=== PATIENT | female | born 1995 | race Caucasian/White ===

== ENCOUNTER 2019-01-10 17:40 | Outpatient (CLI) | payer BC ==
--- NOTE | 2019-01-11 00:21 | Ultrasound Report ---
Reason: PELVIC PAIN, RIGHT, POLYCYCSTIC OVARIAN SYNDROME Procedure Date: 01/10/2019 Accession Number: [id number] / [id number] Procedure: US - Pelvic w/Transvaginal CPT Code: FULL RESULT: EXAM: PELVIC ULTRASOUND EXAM DATE: 01/10/2019 06:35 PM. CLINICAL HISTORY: PELVIC PAIN, RIGHT, POLYCYCSTIC OVARIAN SYNDROME. COMPARISON: None. TECHNIQUE: Realtime transabdominal pelvic scan performed to identify the uterus and adnexa and as an overview of other pelvic structures, followed by transvaginal scan to provide greater detail of the uterus and adnexa, with static image documentation. FINDINGS: Uterus: 6.8 x 4.2 x 5.6 cm, volume 84.5 cc. Anteverted position. Normal overall size and echotexture. Masses: None. Endometrium: 6 mm. No focal endometrial abnormalities. Cervix: Unremarkable. Right Ovary: 3.8 x 2.4 x 3.4 cm, volume 16 cc. Normal echotexture and blood flow. Numerous follicles. Left Ovary: 3.5 x 1.6 x 3.2 cm, volume 9 cc. Normal echotexture and blood flow. Multiple peripheral follicles Free Fluid: None. Other: None. IMPRESSION: No acute sonographic abnormalities. Polycystic ovarian morphology, consistent with known PCOS. RADIA
== END 2019-01-10 17:41 | disposition home or self-care (01) ==
LOC: DI 17:40
PROVIDERS: ATTEND Nurse Practitioner Obstetrics & Gynecology
DX: E28.2 Polycystic ovarian syndrome (principal); R10.2 Pelvic and perineal pain
CPT/HCPCS: 76830; 76856

== ENCOUNTER 2019-01-23 08:00 | Outpatient (CLI) | payer BC | END 2019-01-26 23:59 | disposition home or self-care (01) | LOC: LAB.R 08:00 | PROVIDERS: ATTEND Nurse Practitioner Obstetrics & Gynecology | DX: R30.0 Dysuria (principal); R82.998 Other abnormal findings in urine | CPT/HCPCS: 87086 ==

== ENCOUNTER 2019-03-14 14:55 | Day surgery (SDC) | payer BC ==
[2019-03-14] MEDS ORDERED: HYDROmorphone 1 MG/ML CARPUJECT IVP STA ×3 (15:11→18:02)
[2019-03-14 15:31] LABS: BASOPHILS % (AUTO) 0.6 %; EOSINOPHILS % (AUTO) 0.6 %; LYMPHOCYTES # (AUTO) 1.5 10^3/uL (1.5-3.5); LYMPHOCYTES % (AUTO) 19.6 %; MEAN CORPUSCULAR HEMOGLOBIN 31.4 pg (27.0-31.0); MEAN CORPUSCULAR HGB CONC 34.1 g/dL (32.0-36.0); MEAN CORPUSCULAR VOLUME 92.2 fL (81.0-99.0); MEAN PLATELET VOLUME 8.5 fL (7.9-10.8); MONOCYTES # (AUTO) 0.6 10^3/uL (0.0-1.0); MONOCYTES % (AUTO) 7.5 %; NEUTROPHILS # (AUTO) 5.7 10^3/uL (1.5-6.6); NEUTROPHILS % (AUTO) 71.7 %; PLT - PLATELET COUNT 208 10^3/uL (130-450); RED BLOOD COUNT 4.46 10^6/uL (4.20-5.40); RED CELL DISTRIBUTION WIDTH 12.2 % (12.0-15.0); WHITE BLOOD COUNT 7.9 x10^3/uL (4.8-10.8)
[2019-03-14 15:41] LABS: ALBUMIN 4.7 g/dL (3.2-5.5); ALBUMIN/GLOBULIN RATIO 1.5 (1.0-2.2); BILIRUBIN,TOTAL 0.5 mg/dL (0.2-1.0); CALCIUM 9.3 mg/dL (8.5-10.3); CREATININE 0.7 mg/dL (0.4-1.0); TOTAL PROTEIN 7.8 g/dL (6.7-8.2)
[2019-03-14 15:52] LABS: HCG,QUALITATIVE BLOOD NEGATIVE
[2019-03-14] MEDS ORDERED: SODIUM CHLORIDE 0.9% 1,000 ML IV ONE ×2 (16:15→18:02)
--- NOTE | 2019-03-14 16:17 | ED Physician Documentation ---
PD HPI ABD PAIN - Stated complaint Stated Complaint: ABD PAIN - Chief complaint Chief Complaint: Abd Pain - History obtained from History obtained from: Patient - History of Present Illness Timing - onset: How many days ago (several days) Timing - duration: Days Timing - details: Gradual onset Pain level max: 9 Pain level now: 9 Quality: Aching, Pain Location: Other (periumbilical) Improved by: Laying still Worsened by: Palpation Associated symptoms: Nausea. No: Fever, Vomiting, Hematemesis, Diarrhea, Constipation, Melena, Hematochezia, Dysuria Recently seen: Clinic (sent from clinic) - Additional information Additional information: 23-year-old female presents to the emergency department with a periumbilical hernia that was not reducible in clinic today. She has had ongoing pain for several days. No vomiting. 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 [employer]: Other Other Past Medical History: PCOS - Past Surgical History Past Surgical History: No - Present Medications Home Medications: Ambulatory Orders Medication Instructions Recorded Confirmed Pnv No.122/Iron/Folic Acid 1 each PO 03/14/19 [ Multi Tablet] - Allergies Allergies/Adverse Reactions: Allergies Allergy/AdvReac Type Severity Reaction Status Date / Time No Known Drug Allergies Allergy Verified 03/14/19 15:00 - Social History Does the pt smoke?: No Smoking Status: Never smoker Does the pt drink ETOH?: No Does the pt have substance abuse?: No PD ED PE NORMAL - Vitals Vital signs reviewed: Yes - General General: Alert and oriented X 3, No acute distress - HEENT HEENT: Moist mucous membranes - Neck Neck: Supple, no meningeal sign - Cardiac Cardiac: RRR - Respiratory Respiratory: No respiratory distress, Clear bilaterally - Abdomen Abdomen: Other (Firm, tender small umbilical hernia at the 12 o'clock position.) - Derm Derm: Warm and dry - Neuro Neuro: Alert and oriented X 3 Results - Vitals Vitals: Vital Signs - 24 hr 03/14/19 03/14/19 03/14/19 14:58 15:27 16:00 Temperature 36.9 C Heart Rate 106 H 104 H 86 Respiratory 16 14 14 Rate Blood Pressure 124/80 119/74 119/74 O2 Saturation 100 98 98 03/14/19 17:21 Temperature Heart Rate 59 L Respiratory 14 Rate Blood Pressure 120/53 L O2 Saturation 98 Oxygen O2 Source Room air - Labs Labs: Laboratory Tests 03/14/19 03/14/19 03/14/19 15:15 15:15 15:15 WBC 7.9 RBC 4.46 Hgb 14.0 Hct 41.1 MCV 92.2 MCH 31.4 H MCHC 34.1 RDW 12.2 Plt Count 208 MPV 8.5 Neut # (Auto) 5.7 Lymph # (Auto) 1.5 [place] # (Auto) 0.6 Eos # (Auto) 0.0 Baso # (Auto) 0.0 Absolute Nucleated RBC 0.00 Nucleated RBC % 0.0 Sodium 136 Potassium 3.4 L Chloride 100 L Carbon Dioxide 25 Anion Gap 11.0 BUN 14 Creatinine 0.7 Estimated GFR (MDRD) 102 Glucose 106 H Lactic Acid 2.6 H Calcium 9.3 Total Bilirubin 0.5 AST 22 ALT 15 Alkaline Phosphatase 41 L Total Protein 7.8 Albumin 4.7 Globulin 3.1 Albumin/Globulin Ratio 1.5 Lipase 23 Serum HCG, Qual 03/14/19 15:15 WBC RBC Hgb Hct MCV MCH MCHC RDW Plt Count MPV Neut # (Auto) Lymph # (Auto) [place] # (Auto) Eos # (Auto) Baso # (Auto) Absolute Nucleated RBC Nucleated RBC % Sodium Potassium Chloride Carbon Dioxide Anion Gap BUN Creatinine Estimated GFR (MDRD) Glucose Lactic Acid Calcium Total Bilirubin AST ALT Alkaline Phosphatase Total Protein Albumin Globulin Albumin/Globulin Ratio Lipase Serum HCG, Qual NEGATIVE PD MEDICAL DECISION MAKING - ED course Complexity details: reviewed results, re-evaluated patient, considered differential, d/w patient, d/w email production consultant ED course: 23-year-old female with a umbilical hernia that is not reducible in the emergency department. Her lactate is elevated at 2.6. Given IV fluids and pain medications. Dr. Cespedes, on-call surgeon will come and evaluate the patient [id number]. Dr. Cespedes to take the patient to the OR This document was made in part using voice recognition software. While efforts are made to proofread this document, sound alike and grammatical errors may occur. Departure - Departure Disposition: ED Transfer to [facility] Clinical Impression: Incarcerated umbilical hernia Condition: Stable
[2019-03-14] MEDS ORDERED: BUPIVACAINE 0.5% PF 30 ML VIAL ONE (17:20)
[2019-03-14] MEDS ORDERED: BUPIVACAINE 0.5%-EPI 1:200000 PF 30 ML VIAL ONE (19:05)
--- NOTE | 2019-03-14 19:05 | ANESTHESIA ---
Pre-Anesthesia VS, & Labs - Diagnosis umbilical hernia, incarcerated - Procedure open umbilical hernia repair with mesh Vital Signs: Temp Pulse Resp BP Pulse Ox 36.9 C 87 18 113/68 98 03/14/19 14:58 03/14/19 18:11 03/14/19 18:11 03/14/19 18:11 03/14/19 18:11 Height 5 ft 3 in Weight (kg) 53.07 kg Body Mass Index 20.7 - NPO >8 hours - Is Patient ?: No - Lab Results Current Lab Results: Laboratory Tests 03/14/19 15:15: Serum HCG, Qual NEGATIVE 03/14/19 15:15: Lactic Acid 2.6 H 03/14/19 15:15: Sodium 136, Potassium 3.4 L, Chloride 100 L, Carbon Dioxide 25, Anion Gap 11.0, BUN 14, Creatinine 0.7, Estimated GFR (MDRD) 102, Glucose 106 H, Calcium 9.3, Total Bilirubin 0.5, AST 22, ALT 15, Alkaline Phosphatase 41 L, Total Protein 7.8, Albumin 4.7, Globulin 3.1, Albumin/Globulin Ratio 1.5, Lipase 23 03/14/19 15:15: WBC 7.9, RBC 4.46, Hgb 14.0, Hct 41.1, MCV 92.2, MCH 31.4 H, MCHC 34.1, RDW 12.2, Plt Count 208, MPV 8.5, Neut # (Auto) 5.7, Lymph # (Auto) 1.5, [place] # (Auto) 0.6, Eos # (Auto) 0.0, Baso # (Auto) 0.0, Absolute Nucleated RBC 0.00, Nucleated RBC % 0.0 Fish Bones: 03/14/19 15:15 03/14/19 15:15 Home Medications and Allergies Home Medications: Ambulatory Orders Pnv No.122/Iron/Folic Acid [ Multi Tablet] 1 each PO 03/14/19 Active Medications Sodium Chloride (Normal Saline 0.9%) 1,000 mls @ 150 mls/hr IV .[id number] ONE Stop: 03/14/19 22:54 Last Infusion: 03/14/19 18:10 Dose: 150 mls/hr Pnv No.122/Iron/Folic Acid [ Multi Tablet] 1 each PO 03/14/19 Allergies/Adverse Reactions: Allergies Allergy/AdvReac Type Severity Reaction Status Date / Time No Known Drug Allergies Allergy Verified 03/14/19 15:00 Anes History & Medical History - Anesthetic History Anesthesia Complications: reports: No previous complications - Medical History Cardiovascular: reports: None Pulmonary: reports: None Gastrointestinal: reports: None Endocrine/Autoimmune: reports: Other (pcos) Smoking Status: Never smoker Other Past Medical History: PCOS - Surgical History General: Appendectomy Exam General: Alert Dental: WNL Mouth Opening: Greater than 4 Fingerbreadths Mallampati classification: II Thyromental Distance: greater than 6 cm Respiratory: Lungs clear Cardiovascular: Regular rate, Normal S1, Normal S2 Mental/Cognitive Status: Alert/Oriented X3 Plan Anesthesia Type: General Consent for Procedure(s) Verified and Reviewed: Yes Code Status: Attempt Resuscitation ASA classification: 2-Mild systemic disease Is this case an emergency?: Yes
[2019-03-14] MEDS ORDERED: LACTATED RINGERS 1,000 ML IV ONE ×2 (19:22→20:30)
[2019-03-14] MEDS ORDERED: ONDANSETRON 4 MG/2 ML VIAL IVP ONE (19:52)
[2019-03-14] MEDS ORDERED: ACETAMINOPHEN 1,000 MG/100 ML 100 ML IV ONE (19:52)
[2019-03-14] MEDS ORDERED: fentaNYL 100 MCG/2 ML VIAL IVP ONE (19:52)
[2019-03-14] MEDS ORDERED: MIDAZOLAM 2 MG/2 ML VIAL IVP ONE (19:52)
[2019-03-14] MEDS ORDERED: DEXAMETHASONE 4 MG/ML VIAL IVP ONE (19:52)
[2019-03-14] MEDS ORDERED: PROPOFOL 200 MG/20 ML VIAL IVP ONE (19:52)
[2019-03-14] MEDS ORDERED: ROCURONIUM 50 MG/5 ML VIAL IVP ONE (19:52)
[2019-03-14] MEDS ORDERED: GLYCOPYRROLATE 1 MG/5 ML VIAL IVP ONE (19:52)
[2019-03-14] MEDS ORDERED: ceFAZolin 1 GM VIAL IV ONE (19:52)
[2019-03-14] MEDS ORDERED: LIDOCAINE-MPF 2% 5 ML VIAL IM ONE (19:52)
[2019-03-14] MEDS ORDERED: NEOSTIGMINE 1 MG/1 ML 10 ML MDV IVP ONE (19:52)
[2019-03-14] MEDS: HYDROmorphone 1 MG/ML CARPUJECT ONE ×3 (20:45→21:05)
[2019-03-14] MEDS ORDERED: HYDROcod/ACETAM 5/325 MG TABLET PO PRN (21:02)
[2019-03-14] MEDS: HYDROmorphone 0.5 MG/0.5 ML SYRINGE ONE ×2 (21:12→21:20)
[2019-03-14] MEDS ORDERED: KETOROLAC 15 MG/ML VIAL ONE (21:16)
[2019-03-14] MEDS ORDERED: oxyCODONE/ACET 5/325 Prepack 4 PO STA ×2 (22:08→22:09)
[2019-03-14 22:33] VITALS: BP 117/79
--- NOTE | 2019-03-15 03:03 | OPERATIVE REPORT ---
DATE OF SERVICE: 03/14/2019 Physician: Ghassan Cespedes MD PREOPERATIVE DIAGNOSIS: Incarcerated umbilical hernia. POSTOPERATIVE DIAGNOSIS: Incarcerated umbilical hernia. PROCEDURE PERFORMED: Open repair of umbilical hernia with mesh. INDICATIONS FOR PROCEDURE: The patient is a 23-year-old woman who presented to the ER complaining of pain and swelling around her umbilicus. She was found on exam to have an irreducible incarcerated umbilical hernia. PROCEDURE IN DETAIL: The risks and benefits were explained to the patient. She agreed to procedure. She was taken to the operating room and given general anesthesia and intubated. The abdomen was prepped and draped. A timeout was performed. Everyone in the room agreed to the procedure. We began by making a supraumbilical 3 cm incision transversely over the hernia. This was carried down to the sac itself, which was excised, exposing incarcerated omentum. There was no sign of ischemia. The hernia defect was slightly enlarged until about 2 cm in size and allowed for the omentum to be reduced back inside. The peritoneum surrounding the defect was examined and found to have no adhesions. A small size hernia patch was placed into the hernia defect and the 2 tails of the defect were secured to the fascia using PDS. A circumferential sweep of the space between the peritoneum and the patch did not reveal any tissue. The hernia defect was then closed using Prolene. The subcutaneous tissue was closed in 2 layers using Vicryl and Monocryl with overlying Dermabond. Then, 10 mL of Marcaine was infused in the incision prior to closure. This terminated the procedure. The patient tolerated it well. She was taken to recovery in stable condition after being extubated. INSTRUMENT COUNTS: Instrument and lap counts correct. ESTIMATED BLOOD LOSS: 5 mL SPECIMENS: None. COMPLICATIONS: None. PLAN: The plan is for the patient to go home later today. TD: 03/14/2019 20:24 JESSICA
== END 2019-03-14 23:05 | disposition home or self-care (01) ==
LOC: ED 14:55 → SDS 16:30 → OBS 21:27 → SDS 23:05
PROVIDERS: ATTEND Surgery
PROC: 0WUF0JZ Supplement Abdominal Wall with Synthetic Substitute, Open Approach (ICD-10-PCS; principal; 2019-03-14 18:15)
DX: K42.0 Umbilical hernia with obstruction, without gangrene (principal)
CPT/HCPCS: 36415; 49587; 80053; 83605; 83690; 84703; 85025; 96361; 96374; 96376; 99284; A9270; C1781; J0131; J1170; J7120

== ENCOUNTER 2020-01-07 14:53 | Outpatient (CLI) | payer BC ==
--- NOTE | 2020-01-08 08:34 | Ultrasound Report ---
Reason: TEST POSITIVE Procedure Date: 01/07/2020 Accession Number: [id number] / [id number] Procedure: US - OB First Trimester CPT Code: Final Report FULL RESULT: EXAM: FIRST TRIMESTER OBSTETRIC ULTRASOUND (Less than 11 weeks) EXAM DATE: 01/07/2020 03:40 PM. CLINICAL HISTORY: test positive. LMP: Around 11/15/2019. COMPARISONS: None. TECHNIQUE: Transabdominal and transvaginal ultrasound examination with static image documentation. CLINICAL DATES: EGA 7 weeks 4 days with JEMAL 08/21/2020 based on provided LMP. ASSESSMENT: Gestational Sac: Single intrauterine. Mean gestational sac diameter: 20 mm = 6 weeks 6 days. Embryo: CRL (crown-rump length) 6 mm = 6 weeks 2 days. Cardiac activity: 115 beats per minute. Yolk sac: 3 mm. Amniotic fluid: Not accurately assessed at this gestational age. Early placenta: Not visible at this gestational age. Other: No perigestational fluid collection demonstrated. MATERNAL STRUCTURES: Uterus: Anteverted. Unremarkable. Cervix: Closed. Right Ovary/Adnexa: The ovary measures 3.2 x 1.8 x 2.6 cm, volume 7.8 cc. Unremarkable. Left Ovary/Adnexa: The ovary measures 5.5 x 4.0 x 6.1 cm, volume 70.1 cc. Corpus luteum cyst 2.1 x 1.7 x 1.5 cm. Septated cyst measuring 3.7 x 4.2 x 3.7 cm. Free Fluid: None. Other: None. IMPRESSION: 1. Single viable intrauterine at EGA 6 weeks 2 days with JEMAL 08/30/2020 based on crown-rump length, which is concordant with clinical dates. 2. 3.7 x 4.2 x 3.7 cm left ovarian cyst. RADIA
== END 2020-01-07 14:54 | disposition home or self-care (01) ==
LOC: DI 14:53
PROVIDERS: ATTEND Nurse Practitioner Obstetrics & Gynecology
DX: O34.81 Maternal care for other abnormalities of pelvic organs, first trimester (principal); N83.202 Unspecified ovarian cyst, left side; Z3A.01 Less than 8 weeks gestation of pregnancy
CPT/HCPCS: 76801; 76817

== ENCOUNTER 2020-02-15 12:21 | Outpatient (CLI) | payer BC ==
[2020-02-15 12:44] LABS: MUDS CUTOFF CONCENTRATIONS CUTOFF CONC BELOW:
[2020-02-15 12:59] LABS: AMPHETAMINE SCREEN,URINE NEGATIVE (NEGATIVE); BENZODIAZEPINES SCREEN, URINE NEGATIVE (NEGATIVE); COCAINE SCREEN URINE NEGATIVE (NEGATIVE); METHADONE SCREEN, URINE NEGATIVE (NEGATIVE); METHAMPHETAMINES SCREEN, URINE NEGATIVE (NEGATIVE); OPIATE SCREEN, URINE NEGATIVE (NEGATIVE); OXYCODONE SCREEN, URINE NEGATIVE (NEGATIVE); PROPOXYPHENE SCREEN, URINE NEGATIVE (NEGATIVE); TRICYCLIC ANTIDEPRESSANT,URINE NEGATIVE (NEGATIVE)
[2020-02-15 13:17] LABS: % IRON SATURATION 29 % (20-50); IRON 112 ug/dL (28-170); TOTAL IRON BINDING CAPACITY 381 ug/dL (250-450); TRANSFERRIN 272 mg/dL (192-382)
[2020-02-15 13:21] LABS: FERRITIN 100.7 ng/mL (11.0-306.8)
== END 2020-02-15 12:22 | disposition home or self-care (01) ==
LOC: LAB 12:21
PROVIDERS: ATTEND Obstetrics & Gynecology
DX: Z34.80 Encounter for supervision of other normal pregnancy, unspecified trimester (principal); Z36.89 Encounter for other specified antenatal screening; R00.2 Palpitations
CPT/HCPCS: 36415; 80306; 82728; 83540; 84443; 84466; 93005

== ENCOUNTER 2020-04-11 11:24 | Outpatient (CLI) | payer OTHER ==
--- NOTE | 2020-04-13 03:56 | Ultrasound Report ---
Reason: SCREENING Procedure Date: 04/11/2020 Accession Number: [id number] / [id number] Procedure: US - OB Detailed Eval CPT Code: Final Report FULL RESULT: EXAM: COMPLETE OBSTETRICAL ULTRASOUND EXAM DATE: 04/11/2020 01:00 PM. CLINICAL HISTORY: anatomic survey. COMPARISON: OB FIRST TRIMESTER 01/07/2020 3:10 PM. TECHNIQUE: Real-time sonographic evaluation of the fetus performed by the marketing compliance manager. Multiple underwriting service representative static images were saved for review. DATING: Established EGA 19 weeks 6 days with JEMAL 08/30/2020 based on previous ultrasound. EGA 20 weeks 1 day with JEMAL 08/28/2020 based on the current ultrasound. GENERAL EVALUATION Walter . Cardiac activity: 170 bpm. movement: Visualized. Presentation: Cephalic. Placenta: Posterior position. No evidence for previa. Umbilical cord: 3 vessel cord. Central placental cord origin. Amniotic fluid: Subjectively normal. MVP 3.0 cm. BIOMETRY Bi-Parietal Diameter (BPD): 4.8 cm, 20 weeks 3 days Head Circumference (HC): 18.0 cm, 20 weeks 3 days Abdominal Circumference (AC): 15.1 cm, 20 weeks 2 days Femur Length (FL): 3.2 cm, 19 weeks 6 days Estimated Weight: 337 g, 64th percentile for 19 weeks 6 days. ANATOMY The intracranial structures, profile, face/nose/lips, spine, 4 chamber heart and outflow tracts, stomach, abdominal wall and cord insertion, diaphragm, kidneys, bladder, and extremities were visualized and demonstrate no abnormality. MATERNAL STRUCTURES Uterus: Unremarkable. Cervix: Long and closed. Transabdominal length 4.6 cm. Right ovary/adnexa: Unremarkable. Left ovary/adnexa: Unremarkable. Free fluid: None. IMPRESSION: 1. Walter live intrauterine with gestational age 19 weeks 6 days based on previous ultrasound. 2. Estimated weight is within expected limits for assigned dating. 3. Normal anatomic survey. No anatomic abnormalities are detected at this time. RADIA
== END 2020-04-11 11:25 | disposition home or self-care (01) ==
LOC: DI 11:24
PROVIDERS: ATTEND Obstetrics & Gynecology
DX: Z36.89 Encounter for other specified antenatal screening (principal)
CPT/HCPCS: 76811

== ENCOUNTER 2020-04-15 07:00 | Outpatient (CLI) | payer OTHER ==
[2020-04-15 19:03] LABS: BILIRUBIN,URINE NEGATIVE (NEGATIVE); GLUCOSE, URINE (UA) NEGATIVE (NEGATIVE); KETONES,URINE (UA) 15 mg/dL (NEGATIVE); LEUKOCYTE ESTERASE, URINE NEGATIVE (NEGATIVE); NITRITE,URINE NEGATIVE (NEGATIVE); OCCULT BLOOD,URINE NEGATIVE (NEGATIVE); PROTEIN,URINE NEGATIVE (NEGATIVE); UROBILINOGEN,URINE 0.2 (NORMAL) E.U./dL (NORMAL)
[2020-04-15 19:19] LABS: BACTERIA,URINE None Seen /HPF (None Seen); CLARITY,URINE CLEAR (CLEAR); MUCUS,URINE Few Strands; RBC,URINE None Seen /HPF (0-5); SQUAMOUS EPITHELIAL CELL,UR FEW Squamous (<= Few)
[2020-04-15 20:56] LABS: CANDIDA GROUP DNA NEGATIVE (NEGATIVE); CANDIDA KRUSEI DNA NEGATIVE (NEGATIVE); TRICHOMONAS VAGINALIS DNA NEGATIVE (NEGATIVE)
== END 2020-04-15 23:59 | disposition home or self-care (01) ==
LOC: LAB.R 07:00
PROVIDERS: ATTEND Obstetrics & Gynecology
DX: Z36.89 Encounter for other specified antenatal screening (principal); Z36.0 Encounter for antenatal screening for chromosomal anomalies; O26.899 Other specified pregnancy related conditions, unspecified trimester; Z3A.00 Weeks of gestation of pregnancy not specified; N89.8 Other specified noninflammatory disorders of vagina; R30.0 Dysuria
CPT/HCPCS: 36415; 81001; 81511; 81599; 85025; 86592; 86762; 86803; 86850; 86900; 86901; 87086; 87340; 87389; 87661; 87801

== ENCOUNTER 2020-04-15 12:40 | Outpatient (CLI) | payer OTHER ==
[2020-04-15 17:59] LABS: BASOPHILS % (AUTO) 0.3 %; EOSINOPHILS % (AUTO) 0.2 %; HGB - HEMOGLOBIN 11.4 g/dL (12.0-16.0); LYMPHOCYTES # (AUTO) 1.6 10^3/uL (1.5-3.5); LYMPHOCYTES % (AUTO) 15.8 %; MEAN CORPUSCULAR HEMOGLOBIN 32.2 pg (27.0-31.0); MEAN CORPUSCULAR HGB CONC 33.3 g/dL (32.0-36.0); MEAN CORPUSCULAR VOLUME 96.6 fL (81.0-99.0); MONOCYTES # (AUTO) 0.6 10^3/uL (0.0-1.0); MONOCYTES % (AUTO) 5.9 %; NEUTROPHILS # (AUTO) 7.8 10^3/uL (1.5-6.6); NEUTROPHILS % (AUTO) 77.1 %; PLT - PLATELET COUNT 206 10^3/uL (130-450); RED BLOOD COUNT 3.54 10^6/uL (4.20-5.40); RED CELL DISTRIBUTION WIDTH 12.6 % (12.0-15.0); WHITE BLOOD COUNT 10.2 x10^3/uL (4.8-10.8)
[2020-04-16 12:30] LABS: HIV AG/AB 4TH GEN NON-REACTIVE (NON-REACTIVE)
[2020-04-16 13:14] LABS: HEPATITIS B SURFACE ANTIGEN NON-REACTIVE (NON-REACTIVE)
[2020-04-16 13:15] LABS: HEPATITIS C ANTIBODY NON-REACTIVE (NON-REACTIVE)
== END 2020-04-15 23:59 | disposition home or self-care (01) ==
LOC: LAB.WCP 12:40
PROVIDERS: ATTEND Obstetrics & Gynecology
DX: Z36.89 Encounter for other specified antenatal screening (principal); Z36.0 Encounter for antenatal screening for chromosomal anomalies
CPT/HCPCS: 36415; 81599; 85025; 86762; 86803; 86850; 86900; 86901; 87340; 87389

== ENCOUNTER 2020-06-10 15:20 | Outpatient (CLI) | payer OTHER, MEDICAID ==
[2020-06-10 16:42] LABS: HGB - HEMOGLOBIN 10.4 g/dL (12.0-16.0); MEAN CORPUSCULAR HGB CONC 33.7 g/dL (32.0-36.0); MEAN CORPUSCULAR VOLUME 98.1 fL (81.0-99.0); MEAN PLATELET VOLUME 9.6 fL (7.9-10.8); RED BLOOD COUNT 3.15 10^6/uL (4.20-5.40); WHITE BLOOD COUNT 9.5 x10^3/uL (4.8-10.8)
== END 2020-06-10 15:21 | disposition home or self-care (01) ==
LOC: LAB 15:20
PROVIDERS: ATTEND Obstetrics & Gynecology
DX: Z36.89 Encounter for other specified antenatal screening (principal)
CPT/HCPCS: 36415; 82950; 85027

== ENCOUNTER 2020-07-22 07:00 | Outpatient (CLI) | payer MEDICAID ==
[2020-07-22 22:36] LABS: TRICHOMONAS VAGINALIS DNA UNRESOLVED (NEGATIVE)
== END 2020-07-22 23:59 | disposition home or self-care (01) ==
LOC: LAB.R 07:00
PROVIDERS: ATTEND Obstetrics & Gynecology
DX: Z36.85 Encounter for antenatal screening for Streptococcus B (principal); R30.0 Dysuria; Z11.3 Encounter for screening for infections with a predominantly sexual mode of transmission
CPT/HCPCS: 87086; 87491; 87591; 87661; 87797

== ENCOUNTER 2020-07-22 11:50 | Outpatient (CLI) | payer MEDICAID ==
[2020-07-22 12:23] LABS: BILIRUBIN,URINE NEGATIVE (NEGATIVE); GLUCOSE, URINE (UA) NEGATIVE (NEGATIVE); KETONES,URINE (UA) NEGATIVE (NEGATIVE); LEUKOCYTE ESTERASE, URINE MODERATE (NEGATIVE); NITRITE,URINE NEGATIVE (NEGATIVE); OCCULT BLOOD,URINE NEGATIVE (NEGATIVE); PH,URINE 7.5 PH (5.0-7.5); PROTEIN,URINE NEGATIVE (NEGATIVE); UROBILINOGEN,URINE 0.2 (NORMAL) E.U./dL (NORMAL)
[2020-07-22 12:24] LABS: BASOPHILS % (AUTO) 0.3 %; EOSINOPHILS % (AUTO) 0.3 %; HGB - HEMOGLOBIN 11.5 g/dL (12.0-16.0); LYMPHOCYTES # (AUTO) 1.3 10^3/uL (1.5-3.5); LYMPHOCYTES % (AUTO) 15.2 %; MEAN CORPUSCULAR HEMOGLOBIN 34.3 pg (27.0-31.0); MEAN CORPUSCULAR HGB CONC 35.3 g/dL (32.0-36.0); MEAN CORPUSCULAR VOLUME 97.3 fL (81.0-99.0); MEAN PLATELET VOLUME 9.4 fL (7.9-10.8); MONOCYTES # (AUTO) 0.5 10^3/uL (0.0-1.0); MONOCYTES % (AUTO) 6.3 %; NEUTROPHILS # (AUTO) 6.7 10^3/uL (1.5-6.6); NEUTROPHILS % (AUTO) 77.2 %; PLT - PLATELET COUNT 131 10^3/uL (130-450); RED BLOOD COUNT 3.35 10^6/uL (4.20-5.40); RED CELL DISTRIBUTION WIDTH 12.9 % (12.0-15.0); WHITE BLOOD COUNT 8.6 x10^3/uL (4.8-10.8)
[2020-07-22] MEDS ORDERED: cephALEXin 250 MG CAPSULE PO STA (12:37)
[2020-07-22 12:40] LABS: BACTERIA,URINE Few /HPF (None Seen); CLARITY,URINE CLEAR (CLEAR); RBC,URINE 0-5 /HPF (0-5); SQUAMOUS EPITHELIAL CELL,UR MOD Squamous (<= Few)
[2020-07-22 13:24] VITALS: BP 123/70
[2020-07-22 14:17] LABS: RUPTURE OF MEMBRANES PLUS NEGATIVE (NEGATIVE)
--- NOTE | 2020-07-22 14:30 | PROVIDER PROGRESS NOTE ---
Subjective - Subjective Subjective: SEnt from clinic for contractions and low station. Feeling contractions/tightening about every 5-10min. Feels light headed when gets contractions. Marques like this for the past few days. Doesn't feel like labor. But she feels like labor could be just around the corner, feels like she is "term". Leaking of fluid from vagina, not watery but having to change a liner every 2h. No bleeding. Constant low back pain for the past few days, equal on both sides, no radicular pain. Category 1 NST [place] not picking up well SVE closed, firm, 50% effaced, -2 station, ballotable Spec exam: normal vulva and vagina. Opaque thin fluid present in the vault c/w leukorrhea. Negative pooling, negative valsalva. A/P: 25yo P1 at 34w with concerns of contraction frequency sometimes more frequent than q10min and low station in clinic. Station is improved/normal here. Recheck SVE 2.5h after clinic = still closed and not more effaced. No tocolysis as >34w. Being treated for cystitis diagnosed by UA today in clinic--dose of keflex given here. Wet mount, gc/ct sent. Return this evening for recheck SVE unless contractions resolve. Discussed corticosteroids, I don't recommend them as she is >34w planning a vaginal delivery, no cervical change, prior term delivery, and possible risk of long- term neurobehavioral risks without decreased chance of ventilation. Reviewed that Dr. Marks recommends the opposite as would some other providers--use of steroids >34w is controversial and different facilities are using different approaches. She declines steroids. Objective - Vital Signs/Intake & Output Vital Signs: Vital Signs x48h Temp Pulse Resp BP Pulse Ox 07/22/20 13:23 89 20 123/70 100 07/22/20 12:06 98.2 F 78 20 126/70 100 - Lab Results Fish Bones: 07/22/20 12:17 Other Labs: Lab Results x24hrs 07/22/20 07/22/20 Range/Units 12:17 12:17 WBC 8.6 (4.8-10.8) x10^3/uL RBC 3.35 L (4.20-5.40) 10^6/uL Hgb 11.5 L (12.0-16.0) g/dL Hct 32.6 L (37.0-47.0) % MCV 97.3 (81.0-99.0) fL MCH 34.3 H (27.0-31.0) pg MCHC 35.3 (32.0-36.0) g/dL RDW 12.9 (12.0-15.0) % Plt Count 131 (130-450) 10^3/uL MPV 9.4 (7.9-10.8) fL Neut # (Auto) 6.7 H (1.5-6.6) 10^3/uL Lymph # (Auto) 1.3 L (1.5-3.5) 10^3/uL [place] # (Auto) 0.5 (0.0-1.0) 10^3/uL Eos # (Auto) 0.0 (0.0-0.7) 10^3/uL Baso # (Auto) 0.0 (0.0-0.1) 10^3/uL Absolute Nucleated RBC 0.00 x10^3/uL Nucleated RBC % 0.0 /100WBC Urine Color YELLOW Urine Clarity CLEAR (CLEAR) Urine pH 7.5 (5.0-7.5) PH Ur Specific [place] 1.020 (1.002-1.030) Urine Protein NEGATIVE (NEGATIVE) mg/dL Urine Glucose (UA) NEGATIVE (NEGATIVE) mg/dL Urine Ketones NEGATIVE (NEGATIVE) mg/dL Urine Occult Blood NEGATIVE (NEGATIVE) Urine Nitrite NEGATIVE (NEGATIVE) Urine Bilirubin NEGATIVE (NEGATIVE) Urine Urobilinogen 0.2 (NORMAL) (NORMAL) E.U./dL Ur Leukocyte Esterase MODERATE H (NEGATIVE) Urine RBC 0-5 (0-5) /HPF Urine WBC 4-5 (0-5) /HPF Ur Squamous Epith Cells MOD Squamous H (<= Few) Urine Bacteria Few (None Seen) /HPF Urine Culture Comments NOT INDICATED
[2020-07-22 20:36] LABS: TRICHOMONAS VAGINALIS DNA NEGATIVE (NEGATIVE)
== END 2020-07-22 14:15 | disposition home or self-care (01) ==
LOC: WFO 11:50 → FBP 11:53 → WFO 14:15
PROVIDERS: ATTEND Obstetrics & Gynecology
DX: O23.13 Infections of bladder in pregnancy, third trimester (principal); O60.03 Preterm labor without delivery, third trimester; Z3A.34 34 weeks gestation of pregnancy
CPT/HCPCS: 59025; 81001; 84112; 85025; 87086; 87210; 87491; 87591; 87661; 99213

== ENCOUNTER 2020-08-11 07:00 | Outpatient (CLI) | payer MEDICAID ==
[2020-08-12 12:24] LABS: BILIRUBIN,URINE NEGATIVE (NEGATIVE); GLUCOSE, URINE (UA) NEGATIVE (NEGATIVE); KETONES,URINE (UA) NEGATIVE (NEGATIVE); LEUKOCYTE ESTERASE, URINE LARGE (NEGATIVE); NITRITE,URINE NEGATIVE (NEGATIVE); OCCULT BLOOD,URINE TRACE-LYSE (NEGATIVE); PROTEIN,URINE NEGATIVE (NEGATIVE); UROBILINOGEN,URINE 0.2 (NORMAL) E.U./dL (NORMAL)
[2020-08-12 12:43] LABS: BACTERIA,URINE Rare /HPF (None Seen); CLARITY,URINE CLEAR (CLEAR); RBC,URINE 0-5 /HPF (0-5); SQUAMOUS EPITHELIAL CELL,UR MOD Squamous (<= Few)
[2020-08-12 20:28] LABS: CANDIDA GROUP DNA NEGATIVE (NEGATIVE); CANDIDA KRUSEI DNA NEGATIVE (NEGATIVE); TRICHOMONAS VAGINALIS DNA NEGATIVE (NEGATIVE)
== END 2020-08-11 23:59 | disposition home or self-care (01) ==
LOC: LAB.R 07:00
PROVIDERS: ATTEND Obstetrics & Gynecology
DX: N89.8 Other specified noninflammatory disorders of vagina (principal); R30.0 Dysuria
CPT/HCPCS: 81001; 87086; 87661; 87801

== ENCOUNTER 2020-08-14 12:43 | Outpatient (CLI) | payer MEDICAID ==
--- NOTE | 2020-08-14 14:28 | Ultrasound Report ---
PROCEDURE: OB F/U or Repeat INDICATIONS: INTRAUTERINE GROWTH RESTRICTION OUTSIDE/PRIOR DATING DATA: Last menstrual period (LMP): 11/15/2019. LMP-based estimated date of delivery (JEMAL): 08/21/2020. First dating scan (date and location): 01/07/2020. Estimated date of delivery (JEAML) from first dating scan: 08/30/2020. TECHNIQUE: Real-time scanning was performed of the fetus, with image documentation and biometric measurements. Endovaginal scanning: Not performed COMPARISON: 01/07/2020 and 04/11/2020 FINDINGS: General: A single living intrauterine gestation is present. Presentation: Vertex Placenta: Placental position is posterior, without previa. Amniotic fluid index: 12.9 cm, 46th percentile, normal for gestational age. Largest pocket is 4.9 c m. heart rate: 158 beats per minute. Maternal cervical canal: Not well seen. biometrics: Biparietal diameter: 9.5 cm, 38 weeks, 6 days Head circumference: 33.8 cm, 38 weeks, 6 days Abdominal circumference: 35.6 cm, 39 weeks, 3 days Femur length: 7.3 cm, 37 weeks, 4 days Estimated gestational age from initial scan: 37 weeks, 5 days. Composite gestational age from present scan: 38 weeks, 5 days Estimated weight and percentile: 3633 g, 87th percentile Measurement variability in biometric dating: +/- 10 days from 12-20 weeks gestation, +/- 2 weeks from 20-30 weeks gestation, +/- 3 weeks at 30 weeks gestation or more. IMPRESSION: 1. Single living intrauterine with a composite gestational age by today's measurements one week ahead of the initially assigned gestational age. 2. Symmetric growth. 3. Normal amniotic fluid volume. Reviewed by: Chelsey Saenz MD on 08/14/2020 1:26 PM AKGREG Approved by: Chelsey Saenz MD on 08/14/2020 1:26 PM AKDT Station ID: [id number]
== END 2020-08-14 12:44 | disposition home or self-care (01) ==
LOC: DI 12:43
PROVIDERS: ATTEND Obstetrics & Gynecology
DX: O36.5930 Maternal care for other known or suspected poor fetal growth, third trimester, not applicable or unspecified (principal); Z3A.37 37 weeks gestation of pregnancy
CPT/HCPCS: 76816

== ENCOUNTER 2020-08-22 19:29 | Outpatient (CLI) | payer MEDICAID ==
[2020-08-22 21:10] VITALS: BP 113/67
--- NOTE | 2020-08-23 09:06 | PROCEDURE REPORT ---
- HPI Diagnosis/Indication for NST: Other (labor check) Current EDU 08/30/20 Gestation 38 Weeks and 6 Days 2 Para 1 Vital Signs Temperature 99.5 F 08/22/20 19:50 Heart Rate 104 H 08/22/20 19:50 Respiratory Rate 20 08/22/20 19:50 Blood Pressure 128/85 H 08/22/20 19:50 O2 Saturation 97 08/22/20 19:50 Temperature 99.5 F 08/22/20 20:15 Heart Rate 110 H 08/22/20 20:15 Respiratory Rate 20 08/22/20 20:15 Blood Pressure 113/67 08/22/20 20:15 O2 Saturation 97 08/22/20 19:50 - NST Procedure NST Procedure Start Time 12:03 Stop Time 13:03 - Results and Plan Findings/Impression: Feeling contractions, no VB, no LOF. SVE unchanged from hours ago in clinic. Cat 1 NST Occasional contractions A/P: contractions at term. OK to go home.
== END 2020-08-22 20:35 | disposition home or self-care (01) ==
LOC: WFO 19:29 → FBP 19:32 → WFO 20:35
PROVIDERS: ATTEND Obstetrics & Gynecology
DX: O62.2 Other uterine inertia (principal); Z3A.38 38 weeks gestation of pregnancy
CPT/HCPCS: 99213

== ENCOUNTER 2020-08-29 19:25 | Outpatient (CLI) | payer MEDICAID ==
[2020-08-29 21:15] VITALS: BP 117/75
--- NOTE | 2020-09-08 11:56 | PROVIDER PROGRESS NOTE ---
- HPI Chief Complaint: Labor Check Current : Current EDU 08/30/20 Gestation 39 Weeks and 6 Days 2 Para 1 Vital Signs Temperature 37.4 C 08/29/20 19:37 Heart Rate 84 08/29/20 19:37 Respiratory Rate 16 08/29/20 19:37 Blood Pressure 126/71 08/29/20 19:37 O2 Saturation 100 08/29/20 19:37 Temperature 37.4 C 08/29/20 19:39 Heart Rate 88 08/29/20 21:15 Respiratory Rate 16 08/29/20 21:15 Blood Pressure 117/75 08/29/20 21:15 O2 Saturation 98 08/29/20 21:15 - Exam 2.5/80/-2/mid - Procedures NST Procedure: NST Procedure Start Time 12:03 Stop Time 13:03 Findings: reactive NST Prodromal labor - Plan Plan: Send home reviewed Labor and SROM
== END 2020-08-29 22:30 | disposition home or self-care (01) ==
LOC: WFO 19:25 → FBP 19:27 → WFO 22:30
PROVIDERS: ATTEND Obstetrics & Gynecology
DX: O47.1 False labor at or after 37 completed weeks of gestation (principal); Z3A.39 39 weeks gestation of pregnancy
CPT/HCPCS: 99213

== ENCOUNTER 2020-08-30 04:39 | Inpatient (IN) | payer MEDICAID ==
[2020-08-30] MEDS ORDERED: TRANEXAMIC ACID 1,000 MG in SODIUM CHLORIDE 0.9% 100ML 100 ML IV PRN ×2 (04:51→04:55)
[2020-08-30] MEDS ORDERED: OXYTOCIN 10 UNIT/ML VIAL IM PRN ×2 (04:51→04:55)
[2020-08-30] MEDS ORDERED: METHYLERGONOVINE 0.2 MG/ML VIAL IM PRN ×2 (04:51→04:55)
[2020-08-30] MEDS ORDERED: LIDOCAINE-MPF 1% 30 ML VIAL ID PRN ×2 (04:51→04:55)
[2020-08-30] MEDS ORDERED: OXYTOCIN/SODIUM CHLORIDE 500 ML IV PRN ×2 (04:51→04:55)
[2020-08-30] MEDS ORDERED: miSOPROStoL 200 MCG TABLET BC PRN ×2 (04:51→04:55)
[2020-08-30] MEDS ORDERED: CARBOPROST TROMETHAMINE 250 MCG/ML AMP IM PRN ×2 (04:51→04:55)
[2020-08-30] MEDS ORDERED: SODIUM CHLORIDE FLUSH 0.9% 10 ML SYRINGE IVP PRN ×2 (04:51→04:55)
[2020-08-30] MEDS ORDERED: AMPICILLIN 2 GM in SODIUM CHLORIDE 0.9% MINIBAG 100 ML IV ONE (04:55)
[2020-08-30] MEDS ORDERED: fentaNYL 100 MCG/2 ML VIAL IVP PRN (04:55)
[2020-08-30] MEDS ORDERED: LACTATED RINGERS 1,000 ML IV SCH ×2 (05:00)
[2020-08-30] MEDS ORDERED: WITCH HAZEL/GLYCERIN 1 PAD TOP PRN (05:59)
[2020-08-30] MEDS ORDERED: HYDROCORTISONE 1% CREAM 28 GM TUBE PR PRN (05:59)
--- NOTE | 2020-08-30 06:15 | DELIVERY NOTE ---
Delivery Note - Labor Labor: positive: Spontaneous - Delivery Method Delivery Method: positive: Spontaneous vaginal delivery - Presentation Presentation: positive: Vertex, HIGINIO - left occiput anterior - Nuchal Cord Nuchal Cord: positive: None - Amniotic Fluid Description Amniotic Fluid Description: positive: Clear - Laceration Laceration: positive: None - Delivery Outcome Delivery Outcome: positive: Livebirth - [place]: positive: Placed in direct skin contact with mother, Stimulated, Warmed, [place] used [place] sex: positive: Female - Cord Cord: positive: 3 vessels - Placenta Placenta: positive: Intact - Estimated Blood Loss Estimated Blood Loss (in cc): 300 - Post Delivery Events Post Delivery Events: positive: Shoulder dystocia - Delivery Comments (Free Text/Narrative) Delivery Comments (Free Text/Narrative): Labor: This 25yo @ 40.0wks gestation by 7wk U/S presented to [facility] [place] on 08/30/2020 at 0444 in active labor. She states contractions began at approximately 0150. FHR pattern demonstrated Category I pattern. SROM occurred at 0530 and was noted to be a moderate amount of clear fluid. Pt progressed rapidly to c/c/+2 with spontaneous urge to push at 0540. : of viable female in HIGINIO position. head delivered at 0548 with shoulder dystocia noted. Terrence and suprapubic pressure in the direction of anterior shoulder resolved dystocia and delivery of infant occurring at 0549 for a total shoulder dystocia time of 60 seconds. No nuchal cord. The was stimulated, dried, and placed skin to skin. 's were 7/9 at 1 and 5 min respectively. The umbilical cord was allowed to stop pulsating at which time it was doubly clamped and cut by FOB. Cord blood was obtained. Gentle downward traction applied to umbilical cord with fundual massage for active management of the third stage. Placenta delivered spontaneously and intact at 0554. Brisk vaginal bleeding noted. Fundus firm with fundual massage. Pitocin administered via IM injection x once, 800mcg misoprostol administered BC for adequate control of vaginal bleeding. Pitocin administered via IV continuously for hemostasis. EBL 300mL. Fourth stage: Uterine fundus firm and there is no excessive bleeding. The perineum, vagina, and cervix were inspected and noted to be intact. initiated. Family bonding well. Both mother and baby were left in stable condition.
[2020-08-30 06:21] LABS: BASOPHILS % (AUTO) 0.4 %; EOSINOPHILS # (AUTO) 0.1 10^3/uL (0.0-0.7); EOSINOPHILS % (AUTO) 0.5 %; HGB - HEMOGLOBIN 12.2 g/dL (12.0-16.0); LYMPHOCYTES % (AUTO) 20.4 %; MEAN CORPUSCULAR HEMOGLOBIN 33.1 pg (27.0-31.0); MEAN CORPUSCULAR HGB CONC 34.7 g/dL (32.0-36.0); MEAN CORPUSCULAR VOLUME 95.4 fL (81.0-99.0); MEAN PLATELET VOLUME 10.1 fL (7.9-10.8); MONOCYTES # (AUTO) 0.8 10^3/uL (0.0-1.0); MONOCYTES % (AUTO) 7.6 %; NEUTROPHILS # (AUTO) 7.1 10^3/uL (1.5-6.6); NEUTROPHILS % (AUTO) 70.4 %; PLT - PLATELET COUNT 152 10^3/uL (130-450); RED BLOOD COUNT 3.69 10^6/uL (4.20-5.40); RED CELL DISTRIBUTION WIDTH 12.4 % (12.0-15.0)
--- NOTE | 2020-08-30 07:04 | HISTORY & PHYSICAL EXAMINATION ---
Admit History - Visit Reason Visit Reason: Contractions - : 2 Parity: 1 Premature: 0 Ectopic: 0 : 0 Care: positive: [facility] Risk/History: positive: None Complications This : positive: None Smoking Status: Never smoker - Mother's Labs Mother's Blood Type: positive: A Mother's RH: positive: Positive GBS: positive: Group B Strep Positive Rubella Status: positive: Immune Meds/Allgy - Home Medications Home Medications: Ambulatory Orders Medication Instructions Recorded Confirmed No122/Iron/Folic Acid 1 each PO 03/14/19 [ Multi Tablet] - Allergies Allergies/Adverse Reactions: Allergies Allergy/AdvReac Type Severity Reaction Status Date / Time No Known Drug Allergies Allergy Verified 03/14/19 15:00 Review of Systems - Constitutional Constitutional: denies: Fatigue, Fever, Chills - Eyes Eyes: denies: Blurred vision, Spots in vision, Dipolpia - Cardiovascular Cariovascular: denies: Chest pain, Edema - Respiratory Respiratory: denies: SOB at rest - Gastrointestinal Gastrointestinal: denies: Change in bowel habits - Integumentary Integumentary: denies: Rash, Pruritis - Neurological Neurological: denies: Headache Physical - Abdominal Exam Vital Signs: Temp Pulse Resp BP Pulse Ox 36.6 C 68 18 122/64 08/30/20 05:09 08/30/20 05:09 08/30/20 05:09 08/30/20 05:09 Contraction Intensity: positive: Strong Uterine Resting Tone: positive: Soft - Monitoring Strip Review: positive: Category I - Presentation Presentation: positive: Vertex - Vaginal Exam Membranes: positive: Membranes intact - Speculum Exam Speculum Exam Performed: positive: No Plan for Labor - Plan For Labor I expect patient to be DC'd or transferred within 96 hours.: Yes Plan for Labor: HPI: This 25yo @ 40.0wks gestation presents to [facility] with complaints of contractions. She has been a patient of [facility] through the duration of her which has remained uncomplicated with the exception of an elevated 1 hour GTT however her 3 hour GTT was WNL. In addition she tested positive for GBS. Upon arrival she was noted to be in an active labor pattern with contractions occurring every 2-3 minutes. FHR Category I. She denies vaginal bleeding or leakage for fluid upon arrival and she notes +FM. DATING JEMAL 08/30/2020 based on 7w1d us in 01/07/20 LMP 11/13/19--> JEMAL 08/21/20 (irreg menses) OB Hx: G1: 10/28/2017 @ 39.0wks , Female G2: current Medications: FeSO4; PNV; Pantoprazole Allergies: NKDA course: A pos/ Rub imm Quad wnl Declines carriers screening Pap NILM 04/15/20 FAS 3VC, posterior placenta, Nl FAS Denies HSV TDAP complete HCT 30 on BID iron Glucola 154, normal 3H GBS positive on 07/22/2020
[2020-08-30] MEDS: IBUPROFEN 800 MG TABLET PO SCH ×3 (08:44→22:50)
[2020-08-30] MEDS ORDERED: SODIUM CHLORIDE FLUSH 0.9% 10 ML SYRINGE IVP SCH ×2 (09:00)
[2020-08-30] MEDS ORDERED: AMPICILLIN 1 GM in SODIUM CHLORIDE 0.9% MINIBAG 100 ML IV SCH (09:00)
[2020-08-30] MEDS: ACETAMINOPHEN 500 MG TABLET PO SCH ×2 (10:06→18:48)
[2020-08-31] MEDS: ACETAMINOPHEN 500 MG TABLET PO SCH ×3 (03:06→21:42)
[2020-08-31] MEDS: IBUPROFEN 800 MG TABLET PO SCH ×3 (05:04→18:36)
--- NOTE | 2020-08-31 09:29 | PROVIDER PROGRESS NOTE ---
Subjective - Subjective Subjective: S: Bonding well with baby. without difficulty. Bleeding decreased and is light. Pain well controlled with oral medications. supportive at the bedside. O: BP 108/68, RR 17, HR 68, T 36.5 Heart RRR w/o M/G/R, lungs CTAB, abdomen soft and nontender with fundus firm at U-1, light lochia rubra, perineum intact, bilateral LE's no edema. Admission H/H: 12.2/35.2 PLT 152 A: 25yo -->P2 PPD#1 s/p TSVD viable female Intact perineum P: Continue routine pp care and medications. Secondary to inadequate treatment for GBS positive status, will remain inpatient x 48hrs. Will evaluate for discharge home tomorrow. Objective - Vital Signs/Intake & Output Vital Signs: Vital Signs x48h Temp Pulse Resp BP Pulse Ox 08/31/20 08:58 36.5 C 68 17 108/68 97 08/31/20 04:08 36.8 C 62 16 108/63 100 Intake & Output: Intake & Output 08/28/20 08/29/20 08/30/20 08/31/20 23:59 23:59 23:59 23:59 Intake Total 1000 Output Total 200 Balance 800 - Lab Results Fish Bones: 08/30/20 05:15
[2020-09-01] MEDS: ACETAMINOPHEN 500 MG TABLET PO SCH (00:20)
[2020-09-01] MEDS: IBUPROFEN 800 MG TABLET PO SCH (00:20)
--- NOTE | 2020-09-01 17:29 | PROVIDER PROGRESS NOTE ---
Subjective - Prog Note Date Prog Note Date: 09/01/20 Prog Note Time: 10:00 - Subjective Pt reports feeling: Improved Subjective: Final Progress Note S: Kelin is ambulatory in her room, ELINORB is in room and supportive. She reports her bleeding as light, and her pain as well controlled with ibuprofen/TA. She says has been going well. O: Ambulatory without signs of discomfort Fundus firm Lochia light VSS A: 25yo s/p on 09/01/2020, day 1 well Perineum healing well P: Continue with routine care Evaluate for discharge home today Objective - Vital Signs/Intake & Output Intake & Output: Intake & Output 08/29/20 08/30/20 08/31/20 09/01/20 23:59 23:59 23:59 23:59 Intake Total 1000 Output Total 200 Balance 800 - Lab Results Fish Bones: 08/30/20 05:15
--- NOTE | 2020-09-01 17:29 | DISCHARGE SUMMARY ---
Discharge Summary Discharge Date: 09/01/20 Discharge Disposition: 01 Home, Self Care - HPI History of Present Illness: Admit Date 08/30/2020 Discharge Date 09/01/2020 Diagnosis on Admission: 1. A 25yo at 40.0 week intrauterine 2. Early Active Labor 3. GBS positive Diagnosis on Discharge 1. A 25yo s/p spontaneous vaginal delivery on 08/30/2020 2. Normal recovery 3. GBS inadequately treated r/t precipitous delivery Brief History: She is a patient at [facility] who presented on 08/30/2020 with complaints of contractions. The patient was found to contract every 2-3 minutes and she rapidly progressed to c/c+1 station. She spontaneously delivered a viable female . Apgars were 7 and 9- and 1 and 5 minutes respectively. EBL 300 mL. Her perineum was found to be intact. She has been doing well in her course. She is ambulating and tolerating a regular diet. She is urinating without difficulty and her lochia is normal. Her pain is well controlled with oral medications. She will be discharged home today on day # 2 without need for prescriptions. She intends to follow up with MD care at [facility] in 6 weeks for routine visit. She has been given precautions to call if she has any worsening fevers, chills, abdominal pain, increased bleeding or foul smelling vaginal lochia. - ALLERGIES Allergies/Adverse Reactions: Allergies Allergy/AdvReac Type Severity Reaction Status Date / Time No Known Drug Allergies Allergy Verified 03/14/19 15:00 - MEDICATIONS Home Medications: Ambulatory Orders Medication Instructions Recorded Confirmed No122/Iron/Folic Acid 1 each PO 03/14/19 [ Multi Tablet] - LABS Result Diagrams: 08/30/20 05:15
--- NOTE | 2020-09-01 17:34 | Discharge Plan ---
Discharge Plan Problem Reviewed?: Yes Disposition: Home, Self Care Diet: Regular Shower Restrictions: No Driving Restrictions: No Weight Bearing: Full Weight Plan of Treatment: Follow up with Dr Marks in 6 weeks No Smoking: If you smoke, Please STOP! Call for help. Follow-up with: Roland Marks MD [Provider Admit Priv/Credential] -
[2020-09-01 19:28] VITALS: BP 111/63
--- NOTE | 2020-09-01 19:32 | Labor Flowsheet ---
Labor Flowsheet Datetime Report Generated by CPN: 09/01/2020 19:31 Datetime: 08/30/2020 19:30 VITAL SIGNS NBP Sys/Sanjuana/Mean (mmHg): 114 : 68 : 78 Pulse: 70 SpO2 (%): 97 Datetime: 08/30/2020 06:02 Medication Comments: Pitocin 30 u in 500 LR started Datetime: 08/30/2020 06:00 Stage of : Recovery Datetime: 08/30/2020 05:49 Stage 2 Comments: 60 sec shoulder dystocia; terminal mec Datetime: 08/30/2020 05:46 STAGE 2 Pushing: Coached on Pushing Pushing Position: Pushing with Contractions Pushing Progress: Descent with Pushing Datetime: 08/30/2020 05:42 COMMUNICATION Communication: Provider at Bedside Provider Notified (Name): A. Yesenia, CNM Notification Reason: Status Update Communication Comments: A. Yesenia CNM present on unit and called in to attend delivery as Dr. Giem is on his way in Datetime: 08/30/2020 05:34 ASSESSMENT A Monitor Mode: External US FHR Baseline Rate : 145 Variability: Moderate 6-25 bpm Accelerations: 15X15 Category: Category I VAGINAL EXAM Dilatation (cm): 9.0 Effacement (%): 100 Station: 2 Exam by: APoonam Reynolds, RNC Datetime: 08/30/2020 05:30 Membranes Rupture Method: Spontaneous Amniotic Fluid Color: Clear Amniotic Fluid Amount: Small Datetime: 08/30/2020 05:27 Strip Reviewed by: a. veronica, RNC LaborFlag: Labor Datetime: 08/30/2020 05:22 MEDICATIONS Antibiotics: Ampicillin IV 2 Gm Datetime: 08/30/2020 05:20 Temperature (C): 36.6 UTERINE ACTIVITY Monitor Mode: External Monitor Interventions for UA: [place] Adjusted Frequency (min): 2-3 Quality: Strong Duration (sec): 60-90 Decelerations: None PAIN Pain Scale: 9 Pain Presence: Intermittent Pain Type: Contraction Pain Location: Abdomen Pain Goal: 7 Pain Coping: Breathing Through Contractions; Requesting Pain Medication or Epidural Pain Assessment Comments: wants epidural Membrane Status: Intact MATERNAL ASSESSMENT Level of Consciousness: Alert DTR's/Clonus: DTRs 2+ Headache: Denies Breath Sounds, Left: Clear and Equal Breath Sounds, Right: Clear and Equal Nausea/Vomiting: Present RUQ Epigastric Pain: Denies PATIENT CARE IV/Blood Work: IV Started; IV Bag Number @ 1 Patient Position/Activity: Right Lateral Comfort Measures: Coaching; Family Support Datetime: 08/30/2020 05:05 Vaginal Bleeding: Normal Show Cervix, Consistency: Soft Cervix, Position: Anterior Provider Reviewed Strip: No
== END 2020-09-01 12:00 | disposition home or self-care (01) | DRG 807 ==
LOC: WFO 04:39 → FBP 04:40 → WFO 04:50 → FBP 04:51
PROVIDERS: ADMIT Nurse Practitioner Obstetrics & Gynecology; ATTEND Advanced Practice Midwife
PROC: 10E0XZZ Delivery of Products of Conception, External Approach (ICD-10-PCS; principal; 2020-08-30)
DX: O99.824 Streptococcus B carrier state complicating childbirth (principal); Z37.0 Single live birth; O62.3 Precipitate labor; O66.0 Obstructed labor due to shoulder dystocia; Z3A.40 40 weeks gestation of pregnancy
CPT/HCPCS: 85025; 86850; 86900; 86901; A9270; J7120